=== PATIENT | female | born 1950 | race Caucasian/White ===

== ENCOUNTER → 2022-04-09 12:17 | Outpatient (CLI) | payer MEDICARE, SELFPAY ==
--- NOTE | 2022-04-09 | DI.RAD.S_ITS ---
PROCEDURE: FL JOINT INJECTION LARGE RT INDICATIONS: steroid inj. right hip, arthritis COMPARISON: None. TECHNIQUE: The indications, alternatives, benefits, risks, and complications of the procedure were explained to the patient. Written informed consent was obtained and placed in the chart. The patient was placed in an appropriate position on the fluoroscopy table, and a site was chosen for percutaneous access under fluoroscopic guidance. The site was prepped and draped in a sterile fashion. Local anesthetic was administered using a 1% lidocaine solution. A hypodermic or spinal needle was then used to access the symptomatic joint. Intra-articular location of the needle tip was confirmed by injecting a small amount of contrast, followed by steroid administration. The needle was then withdrawn, and a bandage applied to the puncture site. FINDINGS: Joint injected: Right hip Medications injected: For mL of 40 mg/mL Kenalog and 0.5% Ropivacaine mixture. Patient's pain before injection: 10 out of 10 with movement. Patient's pain after injection: 0 out of 10. Fluoroscopic images demonstrate flattening of the femoral head, which may be secondary to primary osteoarthrosis versus remote prior osteonecrosis or trauma with secondary degenerative changes. Complications: None. IMPRESSION: Successful fluoroscopically guided administration of steroid and anaesthetic solution into the right hip joint. Dictated by: Angus Yanez M.D. on 04/09/2022 at 14:39 Approved by: Angus Yanez M.D. on 04/09/2022 at 14:40
== END ==
PROVIDERS: Referring Provider Orthopaedic Surgery; Visit Provider Orthopaedic Surgery
DX: M16.11 Unilateral primary osteoarthritis, right hip (principal)
CPT/HCPCS: 20610